=== PATIENT | female | born 1965 | race African-American/Black ===

== ENCOUNTER 2019-05-24 01:48 | Emergency (ER) | payer MEDICAID ==
[~2019-05-24] VITALS: Ht 165.1 cm; Wt 63.5 kg
--- NOTE | 2019-05-24 01:48 | NUR ---
PT [place] [employer] PREBOOK. TAKEN TO CHAIR C
[2019-05-24 01:53] VITALS: BP 124/80
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
--- NOTE | 2019-05-24 02:08 | NUR ---
PT TAKEN TO XRAY VIA WHEELCHAIR
--- NOTE | 2019-05-24 02:30 | NUR ---
PT RETURNED FROM XRAY
--- NOTE | 2019-05-24 02:50 | NUR ---
PT TAKEN TO CT VIA WHEELCHAIR
--- NOTE | 2019-05-24 03:03 | NUR ---
PT BACK FROM CT
[2019-05-24 03:11] VITALS: BP 124/80
--- NOTE | 2019-05-24 03:12 | NUR ---
PATIENT [facility] [employer] DEPT. PATIENT EXAMINED BY DR. MILNER. PATIENT MEDICALLY CLEARED AND RELEASED IN CUSTODY IN STABLE CONDITION. ORIGINAL PRE-BOOK FORM GIVEN TO OFFICER MARIANO.
== END 2019-05-24 03:12 ==
LOC: MED 01:48
DX: S13.9XXA Sprain of joints and ligaments of unspecified parts of neck, initial encounter (principal); S29.011A Strain of muscle and tendon of front wall of thorax, initial encounter; Z02.89 Encounter for other administrative examinations; Z88.5 Allergy status to narcotic agent; Y04.2XXA Assault by strike against or bumped into by another person, initial encounter; Y93.89 Activity, other specified; Y92.89 Other specified places as the place of occurrence of the external cause; Y99.8 Other external cause status
CPT/HCPCS: 70450; 71101; 72040; 99284